=== PATIENT | male | born 1940 | race Two or more races ===

== ENCOUNTER 2024-05-20 16:06 | Emergency (ER) | payer BC, MEDICAID ==
[~2024-05-20] VITALS: Ht 177.8 cm; Wt 90.0 kg
[2024-05-20 16:13] VITALS: BP 144/72; PULSE 84; RESP 18; TEMP 98.2; O2SAT 99
[2024-05-20] MEDS ORDERED: IBUPROFEN 400MG TABLET PO ONE (17:00)
== END 2024-05-20 17:27 | disposition left against medical advice (07) ==
LOC: ER 16:06
DX: S01.81XA Laceration without foreign body of other part of head, initial encounter (principal); I10 Essential (primary) hypertension; W01.0XXA Fall on same level from slipping, tripping and stumbling without subsequent striking against object, initial encounter; Y93.89 Activity, other specified; Y92.89 Other specified places as the place of occurrence of the external cause; Y99.8 Other external cause status
CPT/HCPCS: 99283